=== PATIENT | female | born 1990 ===

== ENCOUNTER 2020-11-04 18:47 | Emergency (ER) | payer BC, OTHER ==
--- NOTE | 2020-11-04 19:29 | EDM.PDOC ---
ED HPI GENERAL MEDICAL PROBLEM - General Chief Complaint: Lower Extremity Injury/Pain Stated Complaint: HEARD A POP IN HER KNEE Time Seen by Provider: 11/04/20 18:58 - History of Present Illness INITIAL COMMENTS - FREE TEXT/NARRATIVE: History of present illness: [] The patient was playing pickle ball this afternoon and then she heard a pop in her knee. She had pain since. It hurts to move it so she lay on the floor for a bit. She has had a pop when she tried to walk since then. She has pain is in the knee rather diffusely. It does not give out. She has "bad knees" by history meaning she has chronic knee pain in both knees. The patient denies being and she enjoys good health. Review of systems: As per history of present illness and below otherwise all systems reviewed and negative. Past medical history: As per history of present illness and as reviewed below otherwise noncontributory. Surgical history: As per history of present illness and as reviewed below otherwise noncontributory. Social history: No reported history of drug or alcohol abuse. Family history: As per history of present illness and as reviewed below otherwise noncontributory. Physical exam: Constitutional - well developed, well-nourished and in no acute distress HEENT - normocephalic, no evidence of trauma - external nose and mouth normal - no mass in neck and no JVD - mucosae moist EYES - full EOM, PERRL, no icterus - no evidence of inflammation, injection, or drainage Respiratory - no respiratory distress, equal bilateral expansion Musculoskeletal slight tenderness inferior and medial to the right patella. With resisted quadriceps extension she has pain in that same area. The active and passive range of motion are normal. At rest there is no anatomic abnormality of the shape of the knee. Distal neurovascular intact but when she did the resisted quadriceps she felt tingling in her right foot. No gross deformity of long bones or joints - no tenderness, swelling or edema Neurologic - Alert and oriented times four - CN II-XII grossly intact - motor sensory and coordination symmetrically normal Psychiatric - appropriate mood and affect with normal thought content Hematologic - No petechiae or purpura - mucosa appropriate color and sclera not pale - normal nail bed color and refill Integument - no rash or evidence of trauma - normal turgor Diagnostics: [] Therapeutics: [] Impression: [] Plan: [] Definitive disposition and diagnosis as appropriate pending reevaluation and review of above. Right Knee Pain Score (Numeric/FACES): 7 - Related Data Allergies Allergy/AdvReac Type Severity Reaction Status Date / Time No Known Allergies Allergy Verified 11/04/20 19:20 Home Meds: Home Meds . [No Known Home Meds] 11/04/20 [History] Review of Systems - Review of Systems Review Of Systems: Comprehensive ROS is negative, except as noted in HPI. ED EXAM, GENERAL - Physical Exam Exam: See Below Free Text/Narrative:: My physical exam is in the HPI Course - Vital Signs Text/Narrative:: Knee oh 1 hours the patient had no fracture and therefore I did a stress anterior posterior drawer and varus and valgus stress and had no instability whatsoever. She has mostly discomfort when she does an active straight leg raise. Knee immobilizer advised to avoid further injury to the ligaments that were damaged. Follow-up PMD orthopedics advised. Knee immobilizer applied to the right knee. She will need it for 2 weeks. Needs to prevent further injury to the ligaments. Diagnosis M 23.91. DME written Neurovascular integrity verified after application of immobilizer. Last Recorded V/S: Last Vital Signs Temp 36.8 C 11/04/20 19:16 Pulse 79 11/04/20 19:16 Resp 14 11/04/20 19:16 BP 120/76 11/04/20 19:16 Pulse Ox 98 11/04/20 19:16 - Orders/Labs/Meds Orders: Active Orders 24 hr Category Date Time Status Knee 3V Rt [CR] Stat Exams 11/04/20 19:27 Taken DME for Discharge [COMM] Stat Oth 11/04/20 20:00 Ordered Departure - Departure Time of Disposition: 20:15 Disposition: Home, Self-Care 01 Condition: Good Clinical Impression: Acute internal derangement of right knee - Discharge Information Instructions: Knee Sprain, Adult, [id number] Referrals: Adelso Mallory MD [Primary Care Provider] - Forms: ED Department Discharge Additional Instructions: Rest, ice, elevate, compress with the immobilizer. You should be able to take the immobilizer off when you have pain-free ambulation and range of motion of the knee. Follow-up PMD orthopedic clinic. Further evaluation probably not needed but be careful not to sprained it again while it still sore because it could do further damage to the ligaments. [facility] Professional [facility] [address] [place] [address], [address] [place] [address] The following information is given to patients seen in the emergency department who are being discharged to home. This information is to outline your options for follow-up care. We provide all patients seen in our emergency department with a follow-up referral. The need for follow-up, as well as the timing and circumstances, are variable depending upon the specifics of your emergency department visit. If you don't have a primary care physician on staff, we will provide you with a referral. We always advise you to contact your personal physician following an emergency department visit to inform them of the circumstance of the visit and for follow-up with them and/or the need for any referrals to a consulting specialist. The emergency department will also refer you to a specialist when appropriate. This referral assures that you have the opportunity for follow-up care with a sp ecialist. All of these measure are taken in an effort to provide you with optimal care, which includes your follow-up. Under all circumstances we always encourage you to contact your private physicia n who remains a resource for coordinating your care. When calling for follow-up care, please make the office aware that this follow-up is from your recent emergency room visit. If for any reason you are refused follow-up, please contact the [facility] Emergency Department at and asked to speak to the emergency department charge nurse. Sepsis Event Note (ED) - Evaluation Sepsis Screening Result: No Definite Risk - Focused Exam Vital Signs: Vital Signs Temp Pulse Resp BP Pulse Ox 11/04/20 19:16 36.8 C 79 14 120/76 98 - My Orders Last 24 Hours: My Active Orders 11/04/20 19:27 Knee 3V Rt [CR] Stat 11/04/20 20:00 DME for Discharge [COMM] Stat - Assessment/Plan Last 24 Hours: My Active Orders 11/04/20 19:27 Knee 3V Rt [CR] Stat 11/04/20 20:00 DME for Discharge [COMM] Stat
--- NOTE | 2020-11-04 20:05 | CR ---
INDICATION: Injured in pickle ball TECHNIQUE: Knee radiograph 3 views right COMPARISON: None FINDINGS: Bone: No acute fractures or aggressive bone lesions are identified. Joint: The joint spaces of the medial, lateral, and patellofemoral compartments are unremarkable. No significant knee effusion is seen. Soft tissue: Unremarkable. No radiopaque foreign bodies are seen. IMPRESSION: 1. No acute osseous injuries or abnormalities are noted. Dictated by: Gary Aguiar MD @ 11/04/2020 20:05:08 (Electronically Signed)
[2020-11-04] MEDS ORDERED: Acetaminophen/HYDROcodone 325-5 MG Tab PO ONE (20:08)
[2020-11-04 20:30] VITALS: BP 132/78; PULSE 91
== END 2020-11-04 20:28 | disposition home or self-care (01) ==
LOC: MW.ED 18:47
DX: M23.91 Unspecified internal derangement of right knee (principal)
CPT/HCPCS: 73562; 99283; A9270